=== PATIENT | female | born 1950 | race Caucasian/White ===

== ENCOUNTER → 2021-08-07 14:08 | Outpatient (CLI) | payer OTHER, SELFPAY ==
--- NOTE | 2021-08-07 14:18 | DI.MRI.S_ITS ---
PROCEDURE: MR PELVIS WO CON INDICATIONS: sacoritits TECHNIQUE: Noncontrast axial and oblique coronal T1 spin echo and STIR through the sacroiliac joints. COMPARISON: None. FINDINGS: Image quality: Excellent. Bones: Joint space narrowing and subchondral sclerosis involving bilateral sacroiliac joints are seen. No adjacent bone marrow edema to suggest active sacroiliitis. No bony ankylosis. No suspicious marrow space occupying lesions. Diffusely heterogeneous marrow signal in visualized bony pelvis and lower lumbar spine is seen. Soft tissues: No presacral masses. Rectum appears normal in caliber and wall thickness. No pathologic free pelvic fluid. IMPRESSION: 1. 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 No evidence of active sacroiliitis or ankylosis. 2. Diffusely heterogeneous marrow signal in bony pelvis and lower lumbar spine concerning for anemia versus other marrow infiltrative process. No edema. No fracture or dislocation. 3. No gross presacral soft tissue abnormality. Dictated by: Dominik Gloria M.D. on 08/08/2021 at 11:38 Approved by: Dominik Gloria M.D. on 08/08/2021 at 11:40
== END ==
PROVIDERS: Family Provider Otolaryngology; PCP Physician Assistant Medical; Referring Provider Physician Assistant Medical; Visit Provider Physician Assistant Medical
DX: M46.1 Sacroiliitis, not elsewhere classified (principal)
CPT/HCPCS: 72195

== ENCOUNTER → 2022-07-25 11:35 | Outpatient (CLI) | payer OTHER, SELFPAY ==
--- NOTE | 2022-07-25 11:53 | DI.CT.S_ITS ---
PROCEDURE: CT SINUS SCREEN WO CON INDICATIONS: Chronic pansinusitis TECHNIQUE: Noncontrast 3.0 mm axial images acquired from the frontal sinuses to the mid-sella, with coronal and sagittal reformats. For radiation dose reduction, the following was used: automated exposure control, adjustment of mA and/or kV according to patient size. COMPARISON: None. FINDINGS: Image quality: Excellent. Maxillary Sinuses: Remote bilateral medial nasal antral windows. No bony remodeling or destruction. Sinuses are clear. Ethmoid Air Cells: Remote subtotal ethmoidectomies. No bony remodeling or destruction. Patchy right anterior ethmoid opacification and mild anterior left ethmoid mucosal thickening. Sphenoid Sinuses: No bony remodeling or destruction. Sinuses are clear. Frontal Sinuses: No bony remodeling or destruction. Small air-fluid level in the right frontal sinus. The opacification of the right frontal recess. Left frontal sinus is clear. Ostiomeatal Complexes: Ostiomeatal complexes have been resected. No Karine cells. Miscellaneous: Visualized intra-orbital contents are normal. No duran bullosa or paradoxical turbinate curvature. No nasal septal deviation. IMPRESSION: 1. Extensive previous nasal sinus surgeries, including bilateral medial nasal antral windows, uncinate process resections, and subtotal ethmoidectomies. 2. Mild chronic anterior ethmoid sinusitis bilaterally with mild acute right frontal sinusitis. Dictated by: Russell Contreras M.D. on 07/25/2022 at 16:27 Approved by: Russell Contreras M.D. on 07/25/2022 at 16:37
== END ==
PROVIDERS: Family Provider Otolaryngology; PCP Physician Assistant Medical; Referring Provider Otolaryngology; Visit Provider Otolaryngology
DX: J32.4 Chronic pansinusitis (principal); J33.9 Nasal polyp, unspecified; R51.9 Headache, unspecified
CPT/HCPCS: 70486

== ENCOUNTER 2023-08-19 10:51 | Emergency (ER) | payer OTHER, SELFPAY ==
[2023-08-19 10:54] VITALS: BP 148/76; PULSE 68; RESP 18; TEMP 36.8; O2SAT 99; BMI 24.4
--- NOTE | 2023-08-19 12:03 | PC.NURSE ---
palpated multiple lumps under her left, posterior thigh. Pt reports there was 1 lump and has progressed to multiple lumps.
--- NOTE | 2023-08-19 12:43 | ED_ITS ---
HPI - Extremity Problem General Chief complaint: Extremity Problem,Nontraumatic Stated complaint: IN A LOT OF PAIN Time Seen by Provider: 08/19/23 12:35 Source: patient Mode of arrival: Ambulatory History of Present Illness HPI Narrative: 73-year-old female history of hypothyroidism and on spironolactone with complaint of low back pain radiating down her left leg. Patient and family at bedside state that about 8 weeks ago she bent over had sudden increase of low back pain that radiated at that time down both legs. Since she has had persistent symptoms have waxed and waned in intensity but never resolved. They have been slowly worsening over the past several weeks. Pain goes down her left leg she denies any pain down her right at this time. No saddle anesthesia, no incontinence. She does describe paresthesias in the left lower extremity. A shaped weakness when it is very painful but she can lift and move her leg during these episodes. Particularly movements do seem to make it worse. They have not appreciate any swelling, erythema or color changes. Patient states does kind of hurt in the posterior thigh and she thought she felt lumps in the posterior thigh with deep palpation. She has not had any fevers. No chest pain or shortness of breath, no nausea or vomiting no other GI or urinary symptoms. Patient did receive a steroid shot from her primary care physician initially stated it was somewhat helpful after discussing further she states not very. She has had an x-ray of what sounds like her pelvis but not her lumbar spine. She has had no other further imaging. She has been taking ibuprofen and oxyco done for pain management which he states isn't very helpful. Her notes the oxycodone seems to change her mentation. Patient takes levothyroxine and spironolactone for home medications. Denies any prior back surgeries. No tobacco, occasional alcohol, no recreational or IV drugs. CHUCHO Henriquez as her primary care physician. She did not have a follow up visit and had a shot in the bursa of her hip which was not helpful. Related Data Home Medications Medication Instructions Recorded Confirmed Fish Oil (#CARDI-OMEGA) 1,000 mg PO BID ##0 07/07/10 Fluticasone Propionate (FLONASE) 1 spray intranasal BID ##0 07/07/10 [AMOXICILLIN] 4 tab PO ##0 07/07/10 [CALCIUM,MAG,ZINC,D] PO BID ##0 05/19/11 [PREDNISONE] 2 tab PO ##0 07/07/10 atorvastatin 20 mg tablet (Lipitor) 20 mg PO HS ##0 07/07/10 beclomethasone dipropionate 40 0.04 mg IH BID ##0 07/07/10 mcg/actuation aerosol inhaler (Qvar) sodium chloride 0.65 % nasal spray ##0 07/07/10 aerosol (Deep Sea Nasal) spironolactone 25 mg tablet 25 mg PO BID ##0 07/07/10 (Aldactone) Previous Rx's Medication Instructions Recorded gabapentin 300 mg capsule 300 mg PO TID #30 caps 08/19/23 meloxicam 7.5 mg tablet 7.5 mg PO BID PRN pain, moderate 08/19/23 #14 tabs Allergies Allergy/AdvReac Type Severity Reaction Status Date / Time codeine AdvReac Vomiting Verified 08/19/23 10:54 Review of Systems Review of Systems ROS Unobtainable: All systems reviewed & are unremarkable except as noted in HPI and below Patient History Social History Smoking Status: Never smoker Smoking Status: Never smoker alcohol intake frequency: a few times a week Alcohol type: wine Substance Use Type: does not use Exam Narrative Exam Narrative: GENERAL: Alert and oriented x three, in mild distress HEENT: Head normocephalic, atraumatic, EOMI, pupils reactive, face symmetric, moist mucous membranes NECK: Supple, full range of motion CARDIOVASCULAR: Regular rate and rhythm without murmurs, rubs or gallops. RESPIRATORY: Breath sounds equal bilaterally, no wheezes rales or rhonchi. ABDOMEN: Soft, nontender. Normoactive bowel sounds all 4 quadrants. No guarding or rebound, rigidity, no mass : No CVA tenderness BACK: No cervical, thoracic or lumbar vertebral point tenderness. Patient has normal range of motion. Patient's gait is normal. Rectal exam is deferred. Muscle strength is 5/5 in lower extremities, DTRs are 2/4 and lower extremities. Dorsalis pedis and tibialis pulses are 2+ and lower extremities. Sensation is intact in the lower extremities. EXTREMITIES: Normal range of motion, no clubbing or edema. Neurovascularly intact. No bony tenderness. Patient has full range of motion, normal flexion- extension, normal internal external rotation of the hip. No bony tenderness of the thigh knee lower extremity or foot. No warmth, erythema or skin changes. Patient describes pain lumps in the posterior thigh I do not appreciate any large lumps or lymphadenopathy. Shows 2+ femoral pulse. 2+ dorsalis pedis. Patient is able to easily lift up her leg put on her sock on the affected leg and out of bed and walk to the bathroom. NEUROLOGICAL: Cranial nerves II through XII grossly intact. Moving all extremities SKIN: Warm, dry, no petechiae, no rashes or lesions. Initial Vital Signs Initial Vital Signs: Vital Signs Temperature 98.2 F 08/19/23 10:54 Pulse Rate 68 08/19/23 10:54 Respiratory Rate 18 08/19/23 10:54 Blood Pressure 148/76 H 08/19/23 10:54 Pulse Oximetry 99 08/19/23 10:54 Oxygen Delivery Method Room Air 08/19/23 10:54 Course Orders Ordered: ED Orders 08/19/23 13:04 US periph venous low extrem lt Stat XR LSPINE 2-3 views [XR lumbar spine 2-3V] Stat Discontinued Medications Ketorolac Tromethamine (Ketorolac 30 Mg/Ml Vial) 15 mg IV NOW ONE Stop: 08/19/23 13:07 Last Admin: 08/19/23 13:37 Dose: Not Given Documented By: Ketorolac Tromethamine (Ketorolac 30 Mg/Ml Vial) 30 mg IM NOW ONE Stop: 08/19/23 13:10 Last Admin: 08/19/23 13:15 Dose: 30 mg Documented By: TC Vital Signs Vital signs: Vital Signs - 8 hr 08/19/23 10:54 08/19/23 14:07 08/19/23 14:07 Temperature 98.2 F Pulse Rate 68 56 L Respiratory Rate 18 Blood Pressure 148/76 H 135/63 Pulse Oximetry 99 100 Oxygen Delivery Method Room Air 08/19/23 14:30 08/19/23 15:00 08/19/23 15:32 Temperature Pulse Rate 56 L 54 L 54 L Respiratory Rate 16 16 Blood Pressure 153/74 H 153/74 H Pulse Oximetry 99 100 100 Oxygen Delivery Method Room Air Room Air Room Air MDM - Extremity (Nontraumatic) MDM Narrative Medical decision making narrative: This is a 73-year-old female with symptoms that seem most consistent with low back pain with radiculopathy. Patient has been atraumatic with no falls but does note symptoms started when bending over. Patient does not have any red flag symptoms her exam is overall reassuring she is ambulated here in the department. She has been taking ibuprofen oxycodone and are has been states narcotics seemed to affect her mentation somewhat but she was alert, appropriate and answering questions well. Patient's exam is overall reassuring she does note some discomfort and she felt like lumps in her posterior thighs will include DVT ultrasound. She has had 8 weeks of pain so we will also obtain an L-spine x-ray sounds like she maybe have had a pelvic x-ray at [facility] but I do not have access to these. DVT ultrasound shows no acute changes vessels no thrombus, no concerning findings with the area of pain. technical marketing consultant notes no masses states scan throughout the leg in the region where patient had symptoms. L-spine x-ray shows degenerative changes multilevel facet arthropathy worse L4-5 and L5-S1 multi level disc height loss with degenerative endplate changes in spring present pronounced L5-S1 partially visualized right hip arthroplasty. Discussed findings with patient, she has a very reassuring exam. Had some improvement with Toradol here in the department. She is ambulating without issue. We will adjust medications to see if more helpful for pain management but without causing any sedating affects. Referred patient to follow up with primary care and may benefit PMR or orthopedic surgery. Discharge Plan Departure Patient Disposition: Home Clinical Impression: Lumbar back pain with radiculopathy affecting left lower extremity Instructions: DI for Lumbar Radiculopathy Activity Restrictions/Additional Instructions: Follow up with primary care for recheck, call to set up a follow up appointment for follow-up. I suspect you have radiculopathy or nerve impingement causing your symptoms. Take Tylenol up to a 1000 mg every 6 hours. You can take meloxicam 1 tablet every 12 hours as needed with this medication. Do not take ibuprofen, NSAIDs such as Aleve or naproxen with this medication. Take gabapentin, 1 tablet every 8 hours as needed for pain, this medication best when taken regularly. The dose can be titrated upwards your primary care physician. Prescription sent to [facility] in [place]. Please return for fevers, new swelling, redness, new numbness, weakness or loss of sensation inability to lift or move her lower extremity, loss of bowel or bladder control or other new or concerning changes. Prescriptions: New meloxicam 7.5 mg tablet 7.5 mg PO BID PRN (Reason: pain, moderate) Qty: 14 0RF gabapentin 300 mg capsule 300 mg PO TID Qty: 30 0RF No Action [AMOXICILLIN] 4 tab PO Qty: 0 spironolactone [Aldactone] 25 MG tablet 25 mg PO BID Qty: 0 [PREDNISONE] 2 tab PO Qty: 0 atorvastatin [Lipitor] 20 MG tablet 20 mg PO HS Qty: 0 Fish Oil (#CARDI-OMEGA) 1,000 mg PO BID Qty: 0 beclomethasone dipropionate [Qvar] 40 MCG/PUFF aerosol 0.04 mg IH BID Qty: 0 Fluticasone Propionate (FLONASE) 1 spray Intranasal BID Qty: 0 [CALCIUM,MAG,ZINC,D] PO BID Qty: 0 sodium chloride [Deep Sea Nasal] 44 ML aerosol,spray Qty: 0 Referrals: Cydney Henriquez PA-C [Primary Care Provider] - Stand Alone Forms: Patient Portal/API
--- NOTE | 2023-08-19 13:04 | DI.US.S_ITS ---
PROCEDURE: US PERIPH VENOUS LOW EXTREM LT INDICATIONS: left leg pain, lumps behind thigh per patient TECHNIQUE: Real-time imaging, as well as color and pulse Doppler interrogation, were performed of the lower extremity deep veins from the inguinal ligament to the popliteal fossa, with documentation of the visualized calf veins. COMPARISON: None. FINDINGS: The common femoral, femoral, popliteal, and the visualized calf veins are normally compressible, and free of intraluminal thrombus. Color and pulse Doppler demonstrate normal phasic intraluminal flow. There is normal augmentation response to distal compression maneuver. No concerning findings within the area of pain. IMPRESSION: No findings of lower extremity deep venous thrombosis. Dictated by: Jelani Ward M.D. on 08/19/2023 at 13:48 Approved by: Jelani Ward M.D. on 08/19/2023 at 13:49
--- NOTE | 2023-08-19 13:04 | DI.RAD.S_ITS ---
PROCEDURE: XR LUMBAR SPINE 2-3V INDICATIONS: left leg pain x 8 weeks TECHNIQUE: 3 views of the lumbar spine were acquired. COMPARISON: None. FINDINGS: Bones: 5 [id number] vertebrae are present. There is normal bony alignment. No vertebral body compression fractures. No suspicious bony lesions. There is multilevel facet arthropathy, worse at L4-5 and L5-S1. Mild multilevel disc height loss with degenerative endplate changes and spurring is present. Most pronounced at L5-S1. Partially visualized right hip arthroplasty. Soft tissues: Overlying bowel gas pattern is normal. No suspicious soft tissue calcifications. Atherosclerotic vascular calcifications. Right upper quadrant surgical clips. IMPRESSION: Multilevel degenerative changes of the lumbar spine, most pronounced at L5-S1. Dictated by: Jelani Ward M.D. on 08/19/2023 at 13:26 Approved by: Jelani Ward M.D. on 08/19/2023 at 13:27
[2023-08-19] MEDS: KETOROLAC 30 MG/ML VIAL IM (13:15)
[2023-08-19 14:07] VITALS: BP 135/63; PULSE 56; O2SAT 100
[2023-08-19 14:30] VITALS: PULSE 56; O2SAT 99
[2023-08-19 15:00] VITALS: BP 153/74; PULSE 54; RESP 16; O2SAT 100
[2023-08-19 15:32] VITALS: BP 153/74; PULSE 54; RESP 16; O2SAT 100
== END 2023-08-19 15:33 | disposition home or self-care (01) ==
PROVIDERS: Emergency Provider Emergency Medicine; Family Provider Otolaryngology; PCP Physician Assistant Medical
DX: M54.16 Radiculopathy, lumbar region (principal)
CPT/HCPCS: 72100; 93971; 96372; 99283; J1885

== ENCOUNTER → 2023-09-04 15:19 | Outpatient (CLI) | payer OTHER, SELFPAY ==
--- NOTE | 2023-09-04 15:20 | DI.MRI.S_ITS ---
PROCEDURE: MR LUMBAR SPINE WO CON INDICATIONS: Other intervertebral disc degeneration, lumbar reg TECHNIQUE: Noncontrast sagittal T1 spin echo and T2 fast echo, sagittal STIR, and T2 fast spin echo through the lumbar spine. In cases with scoliosis, additional coronal T2 fast spin echo may be performed. COMPARISON: None. FINDINGS: Image quality: Excellent. Alignment and Curvature: Mild anterolisthesis of L3 on L4. Bone Marrow: Marrow is of normal overall signal. No acute vertebral body compression fractures. Spinal Cord: Conus medullaris terminates at the L1-L2 level. Visualized cord demonstrates normal signal and size. S2 Tarlov cyst is noted. Paraspinous Soft Tissues: No paravertebral masses. T12-L1: Disc desiccation and mild disc height loss. Posterior disc bulge. No central canal or neural foraminal stenosis. L1-L2: Mild facet arthropathy. No central canal or neural foraminal stenosis. L2-L3: Disc desiccation and mild height loss. Mild diffuse disc bulge. Facet arthropathy and thickening of ligamentum flavum. Mild central canal narrowing. Mild bilateral neural foraminal stenosis. L3-L4: Disc desiccation and mild height loss. Mild anterolisthesis. Facet arthropathy and thickening of ligamentum flavum. Mild central canal stenosis. [id number] bilateral neural foraminal stenosis. L4-L5: Disc desiccation and mild diffuse disc bulge. Facet arthropathy and thickening of ligamentum flavum. Mild central canal stenosis. Mild bilateral neural foraminal stenosis. L5-S1: Disc desiccation and moderate disc height loss. Diffuse disc bulge with superimposed left subarticular disc extrusion. Narrowing of the left lateral recess with concern for impingement of the descending left S1 nerve root. Mild central canal stenosis. Facet arthropathy. Moderate bilateral neural foraminal stenosis. IMPRESSION: 1. Multilevel degenerative changes of the lumbar spine as described above. 2. Multilevel mild central canal stenosis. 3. Left subarticular disc extrusion at L5-S1 narrows the left lateral recess with concern for impingement of the descending left S1 nerve root. 4. Moderate bilateral neural foraminal stenosis at L5-S1. Dictated by: Jelani Ward M.D. on 09/04/2023 at 16:10 Approved by: Jelani Ward M.D. on 09/04/2023 at 16:13
== END ==
PROVIDERS: Family Provider Otolaryngology; PCP Physician Assistant Medical; Referring Provider Physician Assistant Medical; Visit Provider Physician Assistant Medical
DX: M51.36 Other intervertebral disc degeneration, lumbar region (principal); M47.816 Spondylosis without myelopathy or radiculopathy, lumbar region; M47.817 Spondylosis without myelopathy or radiculopathy, lumbosacral region; M51.27 Other intervertebral disc displacement, lumbosacral region; M48.07 Spinal stenosis, lumbosacral region; M48.061 Spinal stenosis, lumbar region without neurogenic claudication
CPT/HCPCS: 72148

== ENCOUNTER → 2024-02-21 14:36 | Outpatient (CLI) | payer OTHER, SELFPAY ==
--- NOTE | 2024-02-21 14:39 | DI.US.S_ITS ---
PROCEDURE: US THYROID INDICATIONS: Hx of thyroid cancer TECHNIQUE: Real-time scanning was performed of the thyroid gland, with image documentation. COMPARISON: None. FINDINGS: Thyroid: There is prior total thyroidectomy. No soft tissue mass or fluid collection is seen in thyroid bed to suggest recurrence. No neck soft tissue lymphadenopathy. IMPRESSION: Prior thyroidectomy. No evidence of recurrence. No neck soft tissue lymphadenopathy. ACR TI-RADS definitions and recommendations: TI-RADS 1 (benign): 0 points. FNA not needed. TI-RADS 2 (not suspicious): 2 points. FNA not needed. TI-RADS 3: 3 points. * FNA if 2.5 cm or larger, follow up if 1.5 cm or larger (at 1, 3, and 5 years). TI-RADS 4: 4-6 points. * FNA if 1.5 cm or larger, follow up if 1 cm or larger (at 1, 2, 3, and 5 years). TI-RADS 5: 7 points or more. * FNA if 1 cm or larger, follow up if 0.5 cm or larger (every year for 5 years). Dictated by: Dominik Gloria M.D. on 02/22/2024 at 10:16 Approved by: Dominik Gloria M.D. on 02/22/2024 at 10:17
== END ==
PROVIDERS: Family Provider Otolaryngology; PCP Physician Assistant Medical; Referring Provider Internal Medicine Endocrinology, Diabetes & Metabolism; Visit Provider Internal Medicine Endocrinology, Diabetes & Metabolism
DX: Z08 Encounter for follow-up examination after completed treatment for malignant neoplasm (principal); E89.0 Postprocedural hypothyroidism; Z85.850 Personal history of malignant neoplasm of thyroid
CPT/HCPCS: 76536